=== PATIENT | male | born 1980 | race Caucasian/White ===

== ENCOUNTER 2017-05-10 18:59 | Inpatient (IN) | payer BC ==
[~2017-05-10] VITALS: Ht 175.3 cm; Wt 67.8 kg
[2017-05-10 19:15] VITALS: BP_SYST 130
--- NOTE | 2017-05-10 19:15 | NUR ---
Patient to ER bed 4 to gown for evaluation. Side rails up. Report given to DENISSE Herman.
[2017-05-10] MEDS ORDERED: CIPR-211 PO (19:24)
[2017-05-10] MEDS ORDERED: AZAT50TA18 PO (19:25)
[2017-05-10] MEDS ORDERED: BACL10TA PO (19:25)
[2017-05-10] MEDS ORDERED: OXYC-130 PO (19:26)
[2017-05-10] MEDS ORDERED: HYDR-1189 PO (19:26)
[2017-05-10] MEDS ORDERED: NACL 0.9% 1,000 ML IV ONE (19:37)
[2017-05-10] MEDS ORDERED: ONDANSETRON HCL 4 MG/2 ML VIAL IVP ONE (19:45)
[2017-05-10] MEDS ORDERED: HYDROmorphone 2 MG/ML VIAL IVP ONE (19:45)
--- NOTE | 2017-05-10 19:55 | NUR ---
# 22 gauge angiocath placed to left forearm. Use of asceptic technique. Opsite placed over site. Blood return noted. Flushed with 10 cc of normal saline. No evidence of infiltration noted. Patient tolerated well.
[2017-05-10 19:58] LABS: BASOPHILS % (AUTO) 0.1 % (0.0-2.0); EOSINOPHILS # (AUTO) 0.2 K/uL (0.0-0.4); EOSINOPHILS % (AUTO) 1.3 % (0.0-4.0); HEMATOCRIT 37.1 % (36-54); HEMOGLOBIN 12.1 g/dL (14.0-18.0); LYMPHOCYTES # (AUTO) 1.9 K/uL (1.0-5.5); LYMPHOCYTES % (AUTO) 13.6 % (20.5-51.5); MEAN CORPUSCULAR HEMOGLOBIN 27 pg (27-31); MEAN CORPUSCULAR HGB CONC 33 % (32-36); MEAN CORPUSCULAR VOLUME 83 fL (79.0-98.0); MONOCYTES # (AUTO) 0.8 K/uL (0.0-1.0); MONOCYTES % (AUTO) 5.6 % (1.7-9.3); NEUTROPHILS # (AUTO) 11.2 K/uL (1.8-7.7); NEUTROPHILS % (AUTO) 79.4 % (40.0-70.0); PLATELET COUNT (AUTO) 455 K/uL (130-430); RED BLOOD CELL COUNT(AUTO) 4.47 MIL/uL (4.2-6.2); RED CELL DISTRIBUTION WIDTH 13.2 % (9.0-15.0); WHITE BLOOD COUNT (AUTO) 14.1 K/uL (4.8-10.8)
--- NOTE | 2017-05-10 20:00 | NUR ---
Pt stated 4 wks age went to urgent care (referred by PMD) for c/o abdominal pain, nausea and diarrhea. He was Dx with food poisioning and given Cipro. Pt is still having abdominal pain cramping 07/02.
[2017-05-10 20:02] LABS: CALCIUM 8.7 mg/dL (8.4-11.0); CREATININE 0.73 mg/dL (0.55-1.30); POTASSIUM 3.6 mmol/L (3.5-5.1)
[2017-05-10 20:06] LABS: ALBUMIN 2.8 g/dL (3.4-4.8); TOTAL BILIRUBIN 0.2 mg/dL (0.0-1.0)
[2017-05-10] MEDS ORDERED: sulfASALAZINE 500 MG TABLET (AZULFIDINE) PO ONE (21:15)
[2017-05-10] MEDS ORDERED: LEVOFLOXACIN 500 MG/D5W 100 ML IV ONE (21:15)
--- NOTE | 2017-05-10 21:27 | NUR ---
ER at bedside examining patient.
--- NOTE | 2017-05-10 22:17 | NUR ---
ADMISSION NOTE Received patient from ER via gurney. Patient admitted with diagnosis of Crohn's Disease. Patient is awake, alert, oriented X 4. Patient oriented to hospital room, call light, toileting, pain management and safety-teach back done. Patient informed that Jacqui will be his nurse and that their room number is 134B. Personal belongings checked and Belongings List documented. Call light within reach.
[2017-05-10 22:20] VITALS: BP_SYST 129
--- NOTE | 2017-05-10 22:25 | NUR ---
Patient will be admitted to care of Dr Wolf. Admitted to Med/Surg unit. Will go to room 134B. Belongings list completed. Summary report printed. Report will be given at bedside.
--- NOTE | 2017-05-10 22:40 | NUR ---
INITIAL NOTE PT. RECEIVED FROM ER, ALERT AND ORIENTED. DENIES PAIN OR NAUSEA AT THIS TIME. CIRPO INFUSING WITH NO ADVERSE REACTIONS NOTED. IV ACCESS TO LEFT FOREARM, 22 GAUGE. NO REDNESS OR SWELLING TO THE SITE. PLAN OF CARE DISCUSSED.WILL CONTINUE TO MONITOR FOR CHANGES. SAFETY AND FALL PRECAUTIONS IN PLACE. CALL LIGHT IN REACH.
--- NOTE | 2017-05-10 22:45 | NUR ---
CONSENT CONSENT TO SMOKE IN CHART.
[2017-05-10] MEDS ORDERED: TEMAZEPAM 15 MG CAPSULE PO PRN (23:00)
[2017-05-10] MEDS ORDERED: ACETAMINOPHEN 325 MG TABLET PO PRN (23:00)
[2017-05-10] MEDS ORDERED: ONDANSETRON HCL 4 MG/2 ML VIAL IVP PRN (23:00)
[2017-05-10] MEDS ORDERED: BACLOFEN 10 MG TABLET PO PRN (23:00)
[2017-05-10] MEDS ORDERED: OXYCODONE/ACETAMINOPHEN 5-325 TABLET PO PRN (23:00)
[2017-05-10] MEDS ORDERED: MESALAMINE 400 MG CAPSULE.DR PO ONE (23:15)
[2017-05-10] MEDS ORDERED: metroNIDAZOLE 500 MG TABLET PO ONE (23:15)
[2017-05-10] MEDS ORDERED: FAMOTIDINE 20 MG TABLET PO ONE (23:15)
--- NOTE | 2017-05-10 23:36 | NUR ---
MD ROUNDS ROUNDS WITH DR SEXTON, NEW ORDERS GIVEN. WILL CARRY OUT.
--- NOTE | 2017-05-10 23:59 | NUR ---
paged paged for Dr Wolf, dialed . s/w Isabel.
[2017-05-11] VITALS: BP_SYST 119
[2017-05-11] MEDS ORDERED: MAGNESIUM CITRATE 300 ML ORAL SOLUTION PO ONE (00:15)
[2017-05-11] MEDS ORDERED: PIPERACILLIN/TAZOBACTAM 3.375 GM/VIAL (ZOSYN) IV ONE (00:21)
[2017-05-11] MEDS: KETOROLAC TROMETHAMINE 15 MG VIAL IVP PRN ×3 (01:06→14:18)
--- NOTE | 2017-05-11 01:19 | NUR ---
Consultation Paged Reason for consultation: Crohn's Disease Was consult called: Yes Person who was notified: Melanie Consulting Physician: Stanley Cronin Metal Mover Specialty: GI Metal Mover Ordered By: Dr Wolf
--- NOTE | 2017-05-11 01:20 | NUR ---
ROUNDS PT GIVEN PAIN MEDICATION FOR MODERATE PAIN. IV ABX INFUSING AT THIS TIME. NO ADVERSE REACTIONS NOTED. PT. DRINKING MAG CIT[place]. WILL CONTINUE TO MONITOR FOR CHANGES. SAFETY AND FALL PRECAUTIONS IN PLACE. CALL LIGHT IN REACH.
--- NOTE | 2017-05-11 02:25 | NUR ---
ROUNDS PT. REQUESTING SOMETHING STRONGER FOR PAIN. ALSO REQUESTING TO GO OUT TO SMOKE. ADVISED PT. THAT FOR SAFETY PAIN MEDICATION SHOULD BE GIVEN AFTER AMBULATING OUTSIDE TO SMOKE. PT. STATES HE WOULD LIKE PAIN MEDS FIRST THEN GO OUT TO SMOKE. WILL WALK OUTSIDE WITH PT. SO HE CAN SMOKE FOLLOWING PAIN MEDICATION ADMINISTRATION PER HIS REQUEST. PT. HAD X1 VOID, WILL SEND SAMPLE TO LAB.
[2017-05-11] MEDS: OXYCODONE/ACETAMINOPHEN 5-325 TABLET PO PRN ×2 (02:39→11:54)
--- NOTE | 2017-05-11 03:05 | NUR ---
RN NOTES PT. BACK FROM SMOKING. BACK IN BED, IN COMFORTABLE POSITION. WARM BLANKETS PROVIDED FOR COMFORT. IV FLUIDS CONTINUE TO INFUSE WELL. ALL NEEDS MET AT THIS TIME. WILL CONT. TO MONITOR. SAFETY AND FALL PRECAUTIONS IN PLACE, CALL LIGHT IN REACH.
[2017-05-11 04:00] VITALS: BP_SYST 100
[2017-05-11 04:06] LABS: BILIRUBIN,URINE NEGATIVE (NEGATIVE); BLOOD, URINE NEGATIVE (NEGATIVE); CLARITY/URINE CLEAR (CLEAR); COLOR,URINE YELLOW (YELLOW); GLUCOSE,URINE NEGATIVE (NEGATIVE); KETONES,URINE NEGATIVE (NEGATIVE); LEUKOCYTE ESTERASE ,URINE NEGATIVE (NEGATIVE); NITRITE, URINE NEGATIVE (NEGATIVE); PROTEIN URINE NEGATIVE (NEGATIVE); UROBILINOGEN,URINE 0.2 (0.2-1.0)
--- NOTE | 2017-05-11 04:33 | NUR ---
ROUNDS PT. RESTING IN BED QUIETLY. NO SIGNS OF DISTRESS. DENIES PAIN AT THIS TIME. IVF CONTINUE TO INFUSE WELL. WILL CONTINUE TO MONITOR FOR CHANGES. SAFETY AND FALL PRECAUTIONS IN PLACE. CALL LIGHT IN REACH.
[2017-05-11] MEDS: metroNIDAZOLE 500 MG TABLET PO SCH ×2 (05:33→14:19)
[2017-05-11] MEDS: PIPERACILLIN/TAZO 3.375/DEX-IS 50 ML IV SCH ×4 (05:35→17:25)
--- NOTE | 2017-05-11 06:34 | NUR ---
CLOSING NOTE PT RESTING IN BED WITH EYES CLOSED. IV ABX INFUSING WELL WITH NO ADVERSE REACTIONS NOTED. ALL NECESSARY NEEDS WERE MET THROUGHOUT THE SHIFT, SAFETY AND FALL PRECAUTIONS WERE MAINTAINED. WILL ENDORSE CARE TO AM NURSE. CALL LIGHT IN REACH.
--- NOTE | 2017-05-11 07:58 | NUR ---
Opening Note Report received from Jacqui SALCEDO. Patient is in stable condition and currently resting in bed. Call light is within reach. Bed is in low position. IV is on the LFA 22g running NS@100ml/hr. Patient stated that he goes outside to smoke by himself. Stated to patient that I will verify if he needs to be accompanied by staff. Will continue to monitor.
[2017-05-11] MEDS: azaTHIOprine 50 MG TABLET PO SCH ×2 (09:00→11:55)
[2017-05-11] MEDS: MESALAMINE 400 MG CAPSULE.DR PO SCH ×2 (09:00→14:19)
[2017-05-11] MEDS ORDERED: FAMOTIDINE 20 MG TABLET PO SCH (09:00)
[2017-05-11] MEDS ORDERED: GASTROGRAFIN 120 ML ONE (09:00)
--- NOTE | 2017-05-11 10:21 | NUR ---
Returned to the unit Patient is back on the unit from radiology. He will be going back for another set of images.
[2017-05-11 12:09] VITALS: BP_SYST 111
--- NOTE | 2017-05-11 12:30 | NUR ---
Rounds Patient left the unit to go smoke.
--- NOTE | 2017-05-11 14:50 | NUR ---
Rounds Patient left the unit to go smoke.
[2017-05-11 16:20] VITALS: BP_SYST 110
--- NOTE | 2017-05-11 17:00 | NUR ---
Rounds Patient is resting in bed. Call light is within reach. Waiting for Dr. Wolf to round on the patient.
[2017-05-11] MEDS ORDERED: MINERAL OIL 30 ML UDC PO ONE (18:00)
--- NOTE | 2017-05-11 18:30 | NUR ---
Closing Note DC order obtained from Dr. Wolf. Will give report to the oncoming nurse.
[2017-05-11 20:00] VITALS: BP_SYST 124
[2017-05-11 20:55] VITALS: BP_SYST 129
--- NOTE | 2017-05-11 21:30 | NUR ---
pt.d/c home in stable status.v/s assessed p/t d/c;value w/in normal limits.no c/o pain,nausea,nor sob upon excertion. d/c transitional paper work attended to.i have reviewed the crohn's disease print out education sheet.pt's understanding satisfactory;pt.presents hx of crohn;s and is familiar w/ the signs/symptomology of the disease process.pt.had requested the c-d of the studies;small bowel series,ct-scan;abdomen/pelvis.i have provided the c-d.pt.d/c home.i have reviewed the signs/symptomology if re-admission is necessary. Addendum: 05/12/17 at 0035 by Yuan Delvalle RN pt's belongings accounted for and iv access d/c p/t d/c home.
== END 2017-05-11 21:40 | disposition home or self-care (01) | DRG 389 ==
LOC: SED 18:59 → SMU 21:15
PROVIDERS: ADMIT Internal Medicine; ATTEND Internal Medicine
DX: K56.41 Fecal impaction (principal); K50.90 Crohn's disease, unspecified, without complications; E44.1 Mild protein-calorie malnutrition; K56.7 Ileus, unspecified; R18.8 Other ascites; D72.829 Elevated white blood cell count, unspecified; F17.210 Nicotine dependence, cigarettes, uncomplicated; D64.9 Anemia, unspecified; Z88.8 Allergy status to other drugs, medicaments and biological substances; Z68.22 Body mass index [BMI] 22.0-22.9, adult
CPT/HCPCS: 36415; 74250-TC; 80053; 81003; 83690-TC; 85025; 87040-TC; 87086; 96361; 96365; 96375; 99285; J1170; J1885; J1956; J2405; J2543; J7030; J7060; J7500; Q9963

== ENCOUNTER 2021-04-14 20:19 | Emergency (ER) | payer BC ==
[~2021-04-14] VITALS: Ht 175.3 cm; Wt 79.4 kg
[~2021-04-14 20:19] MED LIST: AZAT50TA18 PO; BACL10TA PO; CIPR500T5 PO; HYDR-3919 PO; OXYC-130 PO
[2021-04-14 20:40] VITALS: BP_SYST 112
[2021-04-14] MEDS ORDERED: ACETAMINOPHEN 325 MG TABLET PO ONE (21:00)
[2021-04-14] MEDS ORDERED: KETOROLAC TROMETHAMINE 15 MG VIAL IM ONE (21:00)
[2021-04-14] MEDS ORDERED: IBUP-1968 PO (21:39)
[2021-04-14] MEDS ORDERED: ACET325T53 PO (21:39)
[2021-04-14 21:57] VITALS: BP_SYST 112
[2021-04-14] MEDS ORDERED: CYCLOBENZAPRINE HCL 10 MG TABLET (FLEXERIL) PO ONE (22:00)
== END 2021-04-14 21:54 | disposition home or self-care (01) ==
LOC: SED 20:19
DX: M54.5 Low back pain (principal); Z79.899 Other long term (current) drug therapy
CPT/HCPCS: 72100; 96372; 99283; J1885